=== PATIENT | female | born 1995 | race Caucasian/White ===

== ENCOUNTER 2017-09-08 17:11 | Emergency (ER) | payer OTHER ==
[~2017-09-08] VITALS: Ht 154.9 cm; Wt 79.4 kg
[2017-09-08 19:37] VITALS: BP 132/72
== END 2017-09-08 19:37 | disposition home or self-care (01) ==
LOC: ED 17:11
DX: R35.0 Frequency of micturition (principal); R11.0 Nausea; M79.1 Myalgia